=== PATIENT | male | born 1945 | race Caucasian/White ===

== ENCOUNTER 2018-12-04 06:53 | Inpatient (IN) ==
[2018-12-04] MEDS ORDERED: NiCARDipine HCL INJ 2.5 MG/ML 10 ML AMP ONE (08:18)
[2018-12-04] MEDS ORDERED: MIDAZOLAM HCL 1 MG/ML 2ML VIAL ONE (08:18)
[2018-12-04] MEDS ORDERED: HEPARIN (PORCINE) 1000 UNIT/ML 10 ML (CATH LAB USE ONLY) ONE ×2 (08:18→10:22)
[2018-12-04] MEDS ORDERED: fentaNYL citrate 100 MCG/2 ML VIAL ONE (08:18)
--- NOTE | 2018-12-04 08:18 | History & Physical Bridge Note ---
Date of Service December 04, 2018 History & Physical Bridge Note I have examined the patient, reviewed the History & Physical and in the interval since the performance of the History & Physical I have noted the following changes of clinical significance: no changes noted
[2018-12-04] MEDS ORDERED: NITROGLYCERIN/D5W 100MCG/ML 20ML SYR ONE (08:20)
--- NOTE | 2018-12-04 09:22 | Cardiac Catheterization ---
Date of Service December 04, 2018 Cardiac Cath Report Cardiac Cath Report Procedure: 1. Coronary angiography History: This is a 73-year-old diabetic male who had coronary stents placed in 2010. Recently he has been experiencing exertional angina. He did undergo a nuclear stress test that was normal however due to his classic symptoms of activity related chest pain consistent with cardiac angina he has been referred for cardiac catheterization. Procedure summary: After informed consent was obtained the patient was taken to the cardiac catheterization lab where access was obtained using a retrograde Salinger technique from the right radial artery. Preformed 5 Belgian diagnostic catheters were utilized for the coronary angiograms. Following the procedure the patient underwent intervention on the right coronary artery. organic lab worker data: Start time 8:34 AM End time 9:01 AM Opening aortic pressure 117/54 Closing aortic pressure 109/64 LV pressurevalve not crossed Sedation 1 mg IV Versed IV fluids 38 cc Contrast 48 cc Fluoroscopy time 3.5 minutes Radiation 1220 mGy DAP 7785 AUC score 7 Right coronary artery dominant Coronary angiography: Selective injections of the left coronary artery revealed the left main trunk to be widely patent. There is evidence of calcification within the left anterior descending artery. There is a large ramus branch from the left main trunk with nonobstructive disease. The left circumflex artery consists of a large first marginal branch and a second larger marginal branch supplying the lateral and apical myocardium. After the first marginal branch there is evidence of a coronary stent which is widely patent. The LAD extends all the way to the apex of the heart. It gives off several small to medium size diagonal branches. The LAD system has diffuse nonobstructive disease. Selective injections of the right coronary artery reveal it to be dominant. The right coronary artery has mild diffuse disease however in its distal mid segment there is an ulcerated 95% stenosis. Summary: High-grade ulcerated stenosis of the mid to distal right coronary artery. Recommendations: The patient will undergo coronary intervention on the right coronary artery.
[2018-12-04] MEDS ORDERED: SODIUM CHLORIDE 0.9% 1000ML 1,000 ML IV SCH (09:40)
[2018-12-04] MEDS ORDERED: NITROGLYCERIN/D5W 100 MCG/ML BTL ONE (10:43)
--- NOTE | 2018-12-04 11:12 | Emergency Department Note ---
ED Visit Note Called to livestock laborer for intubation of this patient. Endotracheal Intubation Indication Cardiogenic shock The patient was on 100% oxygen via oxymask prior to the procedure. Airway equipment, RSI drugs, respiratory equipment, and appropriate personnel were prepared prior to the initiation of the procedure. Induction was performed with 20mg of etomidate and 150mg succinocholyine. After observing the clinical benefit of the medications, the airway was easily visualized utilizing a glidscope #4. A 7.0 size ETT tube was placed atraumatically to 24 cm using standard technique. The cuff inflated without signs of malfunction. There were bilateral breath sounds, positive colormetric change, no gastric sounds, a good capnography waveform, and post procedure pulse oximetry was 97%. Post intubation sedation and paralysis was administered using propofol. There were no complications. Left in care of cardiac care team with plan for transfer to [facility]. Curtis Enriquez MD .
[2018-12-04] MEDS ORDERED: HEPARIN 25000 UNIT/500 ML D5W IV ONE (11:26)
--- NOTE | 2018-12-04 11:39 | Post Anesthesia Assessment ---
Date of Service December 04, 2018 Post Sedation Assessment Vital Signs Temp Pulse Pulse Resp BP Pulse Ox 12/04/18 10:35 75 16 99 12/04/18 07:26 36.8 C 60 18 135/61 99 Recovery Score Activity: Moves 4 extremities Respiration: Apneic/Obstructed Airway (intubated) Circulation: +/-20-49% PreAnes Value Consciousness: Nonresponsive (sedated) Oxygen Saturation: O2 needed for >90% Discharge Sedation Level of Care: Higher Level of Care Post Sedation Plan On clinical assessment, the patient appears to have tolerated the sedation without complications. Patient is recovering as anticipated. Patient will continue to be monitored by nursing and may be discharged when sedation discharge criteria are met per below protocol. Upon Completions of procedure and additional 15 minutes continue every 5 minute vital signs and the P.A.R. score; then discharge to a Phase I or Fast Track to Phase II per the following guidelines: * Discharge Patient to appropriate Phase II area if PAR is 8 or greater or return to pre- procedure baseline. The post - procedure orders will be as directed. * If PAR score is less than 8 or not return to pre-procedure baseline then patient will follow Phase I monitoring till PAR is reached for Phase II. The Phase I may be done in procedure room or may call to secure a Phase I area. * If naloxone or flumazenil are used for reversal, hold in Phase I for continued monitoring from when last reversal dose was given for a minimum of 60 minutes or longer pending the nurse and/or physician discretion of patient condition before discharge to Phase II. Please call the Sedation Physician to re-evaluate and complete post-note for discharge to Phase II area. Do NOT discharge from procedure sedation or Phase 1 until post- sedation evaluation note is complete by procedure /sedation MD Sedation Discharge Instructions to be given to the patient at discharge to home.
--- NOTE | 2018-12-04 11:45 | Cardiac Catheterization ---
Cardiac Cath Procedure Full Procedure Date December 04, 2018 Pre-Procedure Diagnosis Pre-Procedure Diagnosis: Angina AUC Score AUC Score: 7 Post-Procedure Diagnosis Post-Procedure Diagnosis: Severe CAD and Unsuccessful PCI Procedure(s) Performed Procedure(s) Performed: Left Heart Cath, PTCA, Femoral Artery Angiography and Procedure (Impella) Er Rn Michele Waldrop MD Coke Worker(s) Lance Estimated Blood Loss Estimated Blood Loss: 25 Medication(s) Medication(s): Fentanyl, Heparin, Lidocaine 1%, Nitroglycerin and Versed Summary of Findings Indication: Accelerating angina Access: 6Fr right radial artery; 14Fr right TURBINE ENGINE ASSEMBLER Catheters: JR4.5 guide Findings: For full details of patient's coronary angiography please cath report dictated by Dr. Gutierrez. Briefly, patient found to have severe single vessel disease including a 95-99 % calcified stenosis involving the latemid RCA. Decision to proceed with PCI. -- PCI -- Antithrombotic therapy: Heparin Procedure: RCA cannulated with JR 4.5 guide BMW wire used to attempt to cross latemid stenosis. Concern wire in a subintimal space and wire removed. Able to cross lesion with long whisper wire which was placed into distal vessel. Attempted to confirm distal intra-coronary position with injection via corsair catheter. Unable to pass corsair catheter past lesion. Attempted to pass 1.25 balloon with the aid of a guide liner across lesion but unsuccessful Post use of guide liner mid vessel dissection noted with cessation of flow, increased chest pain, ST elevations. Further attempts to pass balloon across lesion unsuccessful With flow-limiting dissection, recalcitrant/unpassable lesion decision to transfer to [facility] for evaluation of emergent surgery With increased work of breathing, borderline pressures and active OH decision to electively intubate Femoral angiography revealed iliofemoral vessels suitable for Impella Impella placed for hemodynamic support, LV offloading with active inferior OH Device functioning appropriately, transition to standard settings, P8 on transfer. Post-procedure RHC with impella: PA 18/6/12 PAWP 10 PaSat 57% AoSat 93% on pulse ox. Jody CO/CI 3.6/1.65 on Impella auto P8. Arterial Closure: TR band. Impella, 6Fr CFV sheath sutured into place Summary: 1. Unsuccessful PCI of latemid RCA. Unable to pass balloon past recalcitrant/calcified lesion 2. Procedure complicated by flow-limiting mid RCA dissection 3. 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 Cardiac Status Clinical evaluation leading to the procedure CAD Presenation: Unstable angina Anginal Classification: CCS III Heart Failure: No Cardiogenic Shock within 24 Hours: Yes Cardiac Arrest within 24 Hours: No Imaging Studies Past 6 Months: Yes Stress Studies Past 6 Months: Yes Stress Echocardiogram: Yes - Negative Diagnostic Physicians Name: Michele Waldrop MD Status: Elective Closure Device Percutaneous Entry Location: Radial Closure Device: Radial Band Recommendations: CABG PCI Indication: Unstable Angina Lesion Segment Name: mid RCA Culprit Artery: Yes Stenosis Prior to Rx (%): 95 Chronic Total Occlusion: No IVUS: No FFR: No Pre-Procedure TRIXIE Flow: 3 Previously Treated Lesion: No Lesion Complexity: High/C Lesion Length (mm): 15 Thrombus Present: No Bifurcation Lesion: No Guidewire Across Lesion: Stenosis Post-Procedure (%): 100 Post-Procedure TRIXIE Flow: 0 Devices(s) Deployed: No Yes Intraprocedure Events Significant Disection: Yes Perforation: No
[2018-12-04] MEDS ORDERED: PROPOFOL IV EMULSION 10 MG/ML 100 ML VIAL IV ONE (11:54)
[2018-12-04] MEDS ORDERED: SUCCINYLCHOLINE CHLORIDE 20 MG/ML 10 ML VIAL IV ONE (11:54)
[2018-12-04] MEDS ORDERED: ETOMIDATE 2 MG/ML 20 ML VIAL IV ONE (11:54)
--- NOTE | 2018-12-17 10:22 | Discharge Summary ---
Date of Service December 17, 2018 Admission HPI Per Admitting Provider Mr. Falk is a 73-year-old man with a history of coronary artery disease post PCI to circumflex with 2 drug-eluting stents in December 2010, hypertension, type 2 diabetes, dyslipidemia, PMR and moderate astigmatic bilateral carotid artery disease who presented for diagnostic coronary angiography in the setting of normal stress test but typical accelerating angina. Coronary angiography revealed severe latemid RCA disease for which decision was made to proceed with PCI. Discharge Data Consultations 12/04/18 10:08 Consult Residential Air Sealing Technician Routine Procedures Performed Operation Date: 12/04/18 08:00 Actual Procedures s Cineradiography w/Routine Exam - Celio Gutierrez, DO s Impella Insertion - Celio Gutierrez, DO p Cath, Right and Left Heart - Celio Gutierrez, DO s POBA SGL Vessel - Obinna Waldrop MD s Central Venous Cath Placement - Obinna Waldrop MD Hospital Course (1) CAD (coronary artery disease): Patient underwent diagnostic angiography via right radial artery by Dr. Gutierrez. Found to have severe single vessel disease with a 95-99 % calcified stenosis involving the latemid RCA. Attempted PCI was undertaken. Procedure complicated by mid RCA dissection. Wire was able to be placed into distal vessel but unable to pass any equipment past calcified latemid RCA stenosis. With dissection patient developed ST elevations, increasing chest pain. Still unable to pass any balloons/ microcatheters past RCA lesion. With flow-limiting dissection, recalcitrant/ unpassable lesion decision to transfer to [facility] for evaluation of possible emergent surgery. With ongoing NV patient developed increased work of breathing , and new relative hypotension. Decision made to electively intubate. Impella placed for hemodynamic support, LV offloading in the setting of active inferior NV. Device placed without issue and functioning appropriately. Patient transferred via ground to [facility] with stable respiratory, hemodynamic status off pressors. (2) Coronary artery dissection: (3) Cardiogenic shock: Discharge Instructions Home Medications Levothyroxine (Levothroid) 100 mcg PO DAILY #0 01/06/11 [History Confirmed 12/04] Aspirin Enteric Coated (Ecotrin Or Generic *) 81 mg PO DAILY #0 01/08/11 [ History Confirmed 12/04/18] Clopidogrel (Plavix) 75 mg PO DAILY #0 01/08/11 [History] Lisinopril (Prinivil *) 2.5 mg PO DAILY #0 01/08/11 [History] Metformin Hcl Ext Rel (Glucophage Ext Rel *) 1,000 mg PO BID #0 01/08/11 [ History Confirmed 12/04/18] Metoprolol Tartrate (Lopressor) (Lopressor) 12.5 mg PO DAILY #0 01/08/11 [ History Confirmed 12/04/18] Nitroglycerin (Nitrostat) 0.4 mg UT PRN #0 01/08/11 [History Confirmed 12/04/18] CoQ-10 200 mg PO BID 12/04/18 [History Confirmed 12/04/18] clonazepam 0.5 mg PO PRN 12/04/18 [History] doxazosin 1 mg PO DAILY 12/04/18 [History Confirmed 12/04/18] losartan 25 mg PO DAILY 12/04/18 [History Confirmed 12/04/18] rosuvastatin 5 mg PO DAILY 12/04/18 [History Confirmed 12/04/18]
== END 2018-12-04 11:55 | disposition short-term general hospital (02) | DRG 215 ==
LOC: CC 06:53 → 2S 10:07